=== PATIENT | female | born 1970 | race Caucasian/White ===

== ENCOUNTER 2018-06-24 09:19 | Outpatient (CLI) | payer OTHER ==
--- NOTE | 2018-06-24 10:44 | RAD ---
CHEST 1 VIEW: Date: 06/24/18 HISTORY: TB screening. COMPARISON: Chest radiograph from 2009. FINDINGS: There is scarring in both lung apices. No pneumothorax or effusion. No focal air space consolidation. IMPRESSION: Scarring in lung apices. POS: [id number]
== END 2018-06-24 09:20 | disposition home or self-care (01) ==
LOC: SCSRAD 09:19
PROVIDERS: ATTEND Emergency Medicine
DX: Z11.1 Encounter for screening for respiratory tuberculosis (principal); J98.4 Other disorders of lung
CPT/HCPCS: 71045